=== PATIENT | female | born 1995 | race Caucasian/White ===

== ENCOUNTER 2021-09-06 07:27 | Emergency (ER) | payer OTHER ==
[~2021-09-06] VITALS: Ht 162.6 cm; Wt 54.4 kg
[2021-09-06 07:34] VITALS: BP 150/85
--- NOTE | 2021-09-06 07:40 | NUR ---
CALLED [employer] # [id number] UNIT WILL BE DISPATCHED.
[2021-09-06] MEDS ORDERED: TDAP [DIPH/PERTUSSIS/TET] 0.5 ML VIAL IM ONE ×2 (08:00→08:05)
[2021-09-06] MEDS ORDERED: AMOX/CLAVULANATE 875 MG TABLET PO ONE ×2 (08:00→08:30)
[2021-09-06] MEDS ORDERED: AMOX/CLAVULANATE 875 MG TABLET ONE (08:04)
[2021-09-06] MEDS ORDERED: AMOX-430 PO (08:05)
--- NOTE | 2021-09-06 08:24 | NUR ---
Patient discharged to home in stable condition. Written and verbal after care instructions given. Patient verbalizes understanding of instruction.
== END 2021-09-06 08:26 | disposition home or self-care (01) ==
LOC: ER 07:27
DX: S01.511A Laceration without foreign body of lip, initial encounter (principal); S09.92XA Unspecified injury of nose, initial encounter; Y04.1XXA Assault by human bite, initial encounter; Y93.89 Activity, other specified; Y92.89 Other specified places as the place of occurrence of the external cause; Y99.8 Other external cause status
CPT/HCPCS: 90715